=== PATIENT | male | born 1975 | race Caucasian/White ===

== ENCOUNTER 2017-02-05 17:22 | Emergency (ER) | payer OTHER ==
[~2017-02-05] VITALS: Ht 188 cm; Wt 102.1 kg
--- NOTE | ~2017-02-05 | EKG ---
[address] [place] [address] ELECTROCARDIOGRAM REPORT Name: MYRTLE LUGO Room #: DEP [facility]#: [id number] Admission: 02/05/17 Attend Phys: Discharge: 02/05/17 Date of : 79 Report #: [id number] THIS REPORT FOR: //name// [facility] ED Test Date: 2017-02-05 Test Time: 18:12:30 Pat Name: MYRTLE LUGO Department: Room: Gender: Activity Manager: Bunny PEARSON : 1975 Requested By: Jurgen Yeh Order Number: [id number] MD: Kit Wiseman Measurements Intervals [place] Rate: 56 P: 44 AL: 141 QRS: -13 QRSD: 118 T: 15 QT: 438 QTc: 423 Interpretive Statements Sinus rhythm Incomplete right bundle branch block Compared to ECG 05/16/2010 15:50:00 Sinus arrhythmia no longer present Electronically Signed On 02-08-2017 22:01:45 CDT by Kit Wiseman [email or web address] <ELECTRONICALLY SIGNED> By: Kit Wiseman MD 02/08/172200 11 11 Kit Wiseman MD /LIZZETTE
[~2017-02-05 17:22] MED LIST: IBUPROFEN 600600 M1 PO; IBUPROFEN 800800 M1 PO; MULTI-VITAMIN1 EAC5 PO; ULTRAM 50MG TAB50 MG PO; XANAX 0.5 MG0.5 MG PO
[2017-02-05] MEDS ORDERED: AMITRIPTYLINE H10 M3 PO (17:49)
[2017-02-05 18:11] LABS: ABSOLUTE NEUTROPHILS 4.7 thou/uL (1.4-8.2); BASOPHILS 0.6 % (0.0-2.0); EOSINOPHILS 1.8 % (0.0-3.0); HEMATOCRIT 48.4 % (42.0-52.0); HEMOGLOBIN 16.6 gm/dL (14.0-18.0); LYMPHOCYTES 21.8 % (24.0-44.0); MCH 29.9 pg (26.0-34.0); MCHC 34.3 g/dL (28.0-37.0); MCV 87.2 fL (80.0-100.0); MONOCYTES 7.2 % (1.0-8.0); PLATELET COUNT 209 thou/uL (150-400); POLYS 68.6 % (36.0-66.0); RBC 5.55 mil/uL (4.50-6.00); WBC 6.9 thou/uL (4.0-11.0)
[2017-02-05 18:12] LABS: MANUAL DIFF NO
[2017-02-05 18:18] LABS: ANION GAP 12 mmol/L (7-16); BUN 15 mg/dL (7-18); CALCIUM 9.3 mg/dL (8.5-10.1); CHLORIDE 103 mmol/L (98-107); CO2 24 mmol/L (21-32); GLUCOSE 90 mg/dL (74-106); POTASSIUM 3.6 mmol/L (3.5-5.1); SODIUM 139 mmol/L (136-145)
[2017-02-05 18:26] LABS: TROPONIN-I < 0.04 ng/mL (<0.04-0.07)
[2017-02-05] MEDS ORDERED: LISINOPRIL10 MG PO (19:10)
[2017-02-05 19:27] VITALS: BP 159/68
== END 2017-02-05 19:04 | disposition home or self-care (01) ==
LOC: ER 17:22
PROVIDERS: Emergency Medicine
DX: I10 Essential (primary) hypertension (principal); F41.9 Anxiety disorder, unspecified; E78.00 Pure hypercholesterolemia, unspecified; F17.200 Nicotine dependence, unspecified, uncomplicated; F10.99 Alcohol use, unspecified with unspecified alcohol-induced disorder; Z88.8 Allergy status to other drugs, medicaments and biological substances; Z88.1 Allergy status to other antibiotic agents